=== PATIENT | female | born 1985 | race Caucasian/White ===

== ENCOUNTER 2017-04-03 10:03 | Emergency (ER) | payer MEDICAID ==
[2017-04-03 10:39] LABS: RAPID STREP SCREEN REAGENT QC YELLOW (YELLOW)
[2017-04-03 11:25] VITALS: BP 114/69
[2017-04-03] MEDS ORDERED: ACETAMINOPHEN 160 MG/5 ML SUSP UDC ONE (11:36)
[2017-04-03] MEDS ORDERED: DEXAMETHASONE 10 MG/ML VIAL ONE (11:36)
[2017-04-03] MEDS ORDERED: DEXAMETHASONE 10 MG/ML VIAL PO STA (11:37)
[2017-04-03] MEDS ORDERED: ACETAMINOPHEN 500 MG TABLET PO STA (11:37)
--- NOTE | 2017-04-03 11:44 | ED Physician Documentation ---
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 Strep is going around at the school. 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 : None HEENT: None Psych: Anxiety Musculoskeletal: None Derm: None - Past Surgical History Past Surgical History: No - Present Medications Home Medications: Ambulatory Orders Medication Instructions Recorded Confirmed Amoxicillin 500 mg PO TID #30 capsule 04/03/17 HYDROcod/ACETAM 5/325 [[place] 5/325] 1 - 2 ea PO Q6H PRN #15 tablet 04/03/17 - Allergies Allergies/Adverse Reactions: Allergies Allergy/AdvReac Type Severity Reaction Status Date / Time codeine Allergy Nausea Verified 05/11/16 22:29 ibuprofen AdvReac Nausea Verified 04/03/17 10:11 - Social History Does the pt smoke?: No Smoking Status: Never smoker Does the pt drink ETOH?: Yes Does the pt have substance abuse?: No - Immunizations Immunizations are current?: Yes - POLST Patient has POLST: No PD ED PE NORMAL - Vitals Vital signs reviewed: Yes - General General: Alert and oriented X 3, No acute distress, Well developed/nourished - HEENT HEENT: Atraumatic, PERRL, EOMI, Other (marked erythema and swelling of the uvula ) - Neck Neck: Supple, no meningeal sign, No bony TTP - Cardiac Cardiac: No murmur, Other (tachy to 110) - Respiratory Respiratory: No respiratory distress, Clear bilaterally - Derm Derm: Normal color, Warm and dry, No rash - Extremities Extremities: No deformity, No edema - Neuro Neuro: No motor deficit, No sensory deficit - Psych Psych: Normal mood, Normal affect Results - Vitals Vitals: Vital Signs - 24 hr 04/03/17 04/03/17 10:08 11:24 Temperature 38.3 C H 38.9 C H Heart Rate 128 H 116 H Respiratory 18 18 Rate Blood Pressure 127/75 114/69 O2 Saturation 99 96 Oxygen O2 Source Room air - Labs Labs: Laboratory Tests 04/03/17 10:10 Group A Strep Rapid POSITIVE H PD MEDICAL DECISION MAKING - ED course Complexity details: considered differential, d/w patient ED course: Strep + given decadron and tylenol and we will put her on some amoxicillin Departure - Departure Disposition: 01 Home, Self Care Clinical Impression: Strep throat Condition: Stable Instructions: ED Strep Pharyngitis Conf Follow-Up: [facility] [Provider Group] Prescriptions: Amoxicillin 500 mg PO TID #30 capsule HYDROcod/ACETAM 5/325 [[place] 5/325] 1 - 2 ea PO Q6H PRN #15 tablet PRN Reason: Pain
== END 2017-04-03 11:54 | disposition home or self-care (01) ==
LOC: ED 10:03
DX: J02.0 Streptococcal pharyngitis (principal); Z87.11 Personal history of peptic ulcer disease
CPT/HCPCS: 87430; 99283; A9270

== ENCOUNTER 2018-11-30 11:08 | Emergency (ER) | payer MEDICAID ==
[2018-11-30 11:46] VITALS: BP 119/67
--- NOTE | 2018-11-30 12:47 | ED Physician Documentation ---
PD HPI UPPER EXT INJURY - Stated complaint Stated Complaint: LF THUMB VS SAW - Chief complaint Chief Complaint: Laceration - History obtained from History obtained from: Patient - History of Present Illness Location: Left (This is a right-handed woman who is up-to-date on tetanus who cut the dorsum of her left thumb at home just prior to arrival with a saw while cutting trim.) Review of Systems Ten Systems: 10 systems reviewed and negative Constitutional: reports: Reviewed and negative Cardiac: reports: Reviewed and negative Respiratory: reports: Reviewed and negative PD PAST MEDICAL HISTORY - Past Medical History Cardiovascular: None Respiratory: None Endocrine/Autoimmune: None GI: Ulcers 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 : None HEENT: None Psych: Anxiety Musculoskeletal: None Derm: None - Past Surgical History Past Surgical History: No - Present Medications Home Medications: Ambulatory Orders Medication Instructions Recorded Confirmed Amoxicillin 500 mg PO TID #30 capsule 04/03/17 HYDROcod/ACETAM 5/325 [[place] 5/325] 1 - 2 ea PO Q6H PRN #15 tablet 04/03/17 Cephalexin [Keflex] 500 mg PO Q6H #28 capsule 11/30/18 Hydrocodone/Acetaminophen 1 - 2 each PO Q6H PRN #14 tablet 11/30/18 [Hydrocodon-Acetaminophen 5-325] - Allergies Allergies/Adverse Reactions: Allergies Allergy/AdvReac Type Severity Reaction Status Date / Time codeine Allergy Nausea Verified 11/30/18 11:45 ibuprofen AdvReac Nausea Verified 11/30/18 11:45 - Social History Does the pt smoke?: No Smoking Status: Never smoker Does the pt drink ETOH?: Yes Does the pt have substance abuse?: No - Family History Family history: reports: Non contributory - Immunizations Immunizations are current?: Yes - POLST Patient has POLST: No PD ED PE NORMAL - Vitals Vital signs reviewed: Yes - General General: Alert and oriented X 3, No acute distress - HEENT HEENT: PERRL, EOMI - Neck Neck: Supple, no meningeal sign, No bony TTP - Cardiac Cardiac: RRR, No murmur - Respiratory Respiratory: No respiratory distress, Clear bilaterally - Abdomen Abdomen: Normal bowel sounds, Soft, Non tender - Back Back: No CVA TTP, No spinal TTP - Derm Derm: Normal color, Warm and dry - Extremities Extremities: Other (There is a 2 cm laceration over the dorsal surface of the left thumb just distal to the MCP over the proximal phalanx. It is mostly on the radial side. She has intact but diminished sensation on both sides of the tip with normal cap refill. Tendon function will be assessed after anesthetic.) - Neuro Neuro: Alert and oriented X 3, Normal speech - Psych Psych: Normal mood, Normal affect Results - Vitals Vitals: Vital Signs - 24 hr 11/30/18 11:35 Temperature 36.4 C L Heart Rate 78 Respiratory 20 Rate Blood Pressure 119/67 O2 Saturation 98 Oxygen O2 Source Room air - Rads (name of study) L hand Radiology: EMP read contemporaneously (open chip frx thumb prox phalanx) Procedures - Laceration (location) L thumb Length in cm: 2 Wound type: Other (Jagged, explored, no tendon involvement that I can see, small bit of bone hanging loose and debrided) Neurovascular status: Sensory intact (some tingling, but gross sensation nl at tip) Anesthesia: Lidocaine 1%, With bicarb Wound Preparation: Hibiclens, Irrigated copiously NS Skin layer closure: Nylon, Interrupted, Size #-0 - enter number (4-0) Complexity: Intermediate - Splint (location) L hand Splint applied by: Tech Type of splint: Fiberglass, Short arm, Thumb spica Other: Patient tolerated well, No complications, Neurovascular intact PD MEDICAL DECISION MAKING - ED course ED course: 33-year-old woman with a nondominant hand injury with a open fracture of the left proximal phalanx of the thumb and jagged laceration there but seems to resist flexion and ulnar or radial deviation very well. Case discussed by phone with the on-call orthopedist, Dr. Stewart who will see her in follow-up. The skin was closed and she was placed in a splint. Departure - Departure Disposition: 01 Home, Self Care Clinical Impression: Open fracture of left thumb Qualifiers: Encounter type: initial encounter Phalanx: proximal Fracture alignment: nondisplaced Qualified Code(s): S62.515B - Nondisplaced fracture of proximal phalanx of left thumb, initial encounter for open fracture Condition: Good Record reviewed to determine appropriate education?: Yes Instructions: ED Fx Hand Open Follow-Up: [facility] [Provider Group] (Call today, Dr. Stewart is available aware of your case and would like to see you by Wednesday.) Prescriptions: Cephalexin [Keflex] 500 mg PO Q6H #28 capsule Hydrocodone/Acetaminophen [Hydrocodon-Acetaminophen 5-325] 1 - 2 each PO Q6H PRN #14 tablet PRN Reason: pain Comments: Keep the splint on and dry, keep it elevated as much as possible. Do not drink or drive while taking narcotic pain medication. Note that many narcotic pain relievers also contain Tylenol/acetaminophen. Please ensure that your total dose of acetaminophen from all sources does not exceed 3 g (3000 mg) per day. You may get constipated while on this medication. Take a stool softener such as Colace twice a day while you are on it. Also add an [id number] laxative such as senna or MiraLAX on any day that you do not have a bowel movement. If you received a narcotic pain medication or sedative while in the emergency department, do not drive for the next 24 hours.
[2018-11-30] MEDS: BUFFERED LIDOCAINE 10 ML SYRINGE SUBQ STA (12:54)
--- NOTE | 2018-11-30 12:55 | XRAY Report ---
Reason: thumb vs saw Procedure Date: 11/30/2018 Accession Number: [id number] / [id number] Procedure: XR - Hand 3 View LT CPT Code: FULL RESULT: EXAM: LEFT HAND RADIOGRAPHY EXAM DATE: 11/30/2018 12:35 PM. CLINICAL HISTORY: Thumb versus saw. COMPARISON: HAND 3 VIEW RT 03/11/2015 10:41 AM. TECHNIQUE: 3 views. FINDINGS: Bones: Osseous fragments along the medial aspect of the left first proximal phalanx with apparent intra-articular extension of the "cut" are consistent with saw injury involving the first metacarpophalangeal joint and first proximal phalanx. Joints: Normal. No subluxations. Soft Tissues: Soft tissue swelling in the region of injury. IMPRESSION: Intra-articular extension of the wound. RADIA
[2018-11-30] MEDS: HYDROcod/ACETAM 5/325 MG TABLET PO STA (13:33)
[2018-11-30] MEDS: cephALEXin 250 MG CAPSULE PO STA (13:33)
== END 2018-11-30 13:48 | disposition home or self-care (01) ==
LOC: ED 11:08
DX: S62.515B Nondisplaced fracture of proximal phalanx of left thumb, initial encounter for open fracture (principal); W27.0XXA Contact with workbench tool, initial encounter; Y92.009 Unspecified place in unspecified non-institutional (private) residence as the place of occurrence of the external cause
CPT/HCPCS: 12041; 99283

== ENCOUNTER 2018-12-20 12:22 | Emergency (ER) | payer MEDICAID ==
--- NOTE | 2018-12-20 13:32 | ED Physician Documentation ---
PD HPI UPPER EXT INJURY - Stated complaint Stated Complaint: HAND INJURY/LACERATION - Chief complaint Chief Complaint: Trauma Ext - History obtained from History obtained from: Patient - History of Present Illness Location: Left, Finger (middle ring and little fingers.) Type of injury: Twist, Laceration (she was holding wire for fencing to fix it and her horse ran into the wire and pulled it suddently, causing tear of skin on patient's middle/ring and little fingers, mostly the little one. Fingers were also twisted with that, and it hurts to move the fingers at PIP joints.) Where injury occurred: Home Timing - onset: Today Worsened by: Moving, Palpating Associated symptoms: No: Weakness, Numbness Contributing factors: Prior ortho surgery (she had axed her left hand at base of thumb and had repair of that tendon and skin, with suture removal and replace cast last week. 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 HEENT: None Psych: Anxiety Musculoskeletal: None Derm: None - Past Surgical History Past Surgical History: No - Present Medications Home Medications: Ambulatory Orders Medication Instructions Recorded Confirmed Hydrocodone/Acetaminophen [[place] 1 each PO Q6H PRN #20 tablet 12/20/18 5-325 Tablet] Mupirocin 1 applic TP TID #15 g 12/20/18 Sertraline [Zoloft] 1 tab PO BID 12/20/18 12/20/18 - Allergies Allergies/Adverse Reactions: Allergies Allergy/AdvReac Type Severity Reaction Status Date / Time codeine Allergy Nausea Verified 12/20/18 12:30 ibuprofen AdvReac Nausea Verified 12/20/18 12:30 - Social History Does the pt smoke?: No Smoking Status: Never smoker Does the pt drink ETOH?: Yes Does the pt have substance abuse?: No - Immunizations Immunizations are current?: Yes - POLST Patient has POLST: No PD ED PE NORMAL - Vitals Vital signs reviewed: Yes - General General: Alert and oriented X 3, Well developed/nourished, Other (seems uncomfortable with fingers movement and palpation. ) - Derm Derm: Normal color, Warm and dry - Extremities Extremities: Other (thumb spica cast in place. Her left middle/ring/little fingers with lacerations of partial thickness skin layers. Some loose devitalized skin partly held on. These are trimmed off. No FBs seen. She can flex and extend fingers. Lacs are not full thickness, so no sutures needed. Tenderness and some swelling of ring and little fingers. ) - Neuro Neuro: Alert and oriented X 3, No motor deficit, No sensory deficit Results - Vitals Vitals: Vital Signs - 24 hr 12/20/18 12/20/18 12:28 15:58 Temperature 36.3 C L Heart Rate 95 86 Respiratory 17 16 Rate Blood Pressure 145/86 H 112/79 O2 Saturation 99 99 Oxygen O2 Source Room air - Rads (name of study) left hand Radiology: Prelim report reviewed, EMP read contemporaneously (prior fracture base of first MC similar to prior. Fingers without acute fracture. ), See rad report PD MEDICAL DECISION MAKING - ED course Complexity details: reviewed results, considered differential (superficial lacs with loose thin skin. I trimmed the loose pieces off. ), d/w patient Departure - Departure Disposition: 01 Home, Self Care Clinical Impression: Laceration of fingers without complication Qualifiers: Encounter type: initial encounter Qualified Code(s): S61.219A - Laceration without foreign body of unspecified finger without damage to nail, initial encounter Condition: Stable Record reviewed to determine appropriate education?: Yes Instructions: ED Laceration Hand Follow-Up: [facility] [Provider Group] Prescriptions: Hydrocodone/Acetaminophen [[place] 5-325 Tablet] 1 each PO Q6H PRN #20 tablet PRN Reason: Pain Mupirocin 1 applic TP TID #15 g Comments: Cleanse the lacerations of the hand couple of times a day and apply mupirocin antibiotic ointment. Bandage to keep them protected. There are no fractures seen on x-ray. Follow-up with orthopedics next week as planned for the wrist. Return if signs of infection of the fingers. Tylenol if needed for pains. Add hydrocodone if needed. Discharge Date/Time: 12/20/18 15:59
[2018-12-20] MEDS ORDERED: HYDROcod/ACETAM 5/325 MG TABLET PO STA (13:52)
[2018-12-20] MEDS ORDERED: LIDOCAINE JELLY 2% 5 ML TUBE TOP STA (13:52)
[2018-12-20 15:59] VITALS: BP 112/79
--- NOTE | 2018-12-20 15:59 | XRAY Report ---
Reason: fingers twisted with wire; prior thumb fracture. Procedure Date: 12/20/2018 Accession Number: [id number] / [id number] Procedure: XR - Hand 3 View LT CPT Code: FULL RESULT: EXAM: LEFT HAND RADIOGRAPHY EXAM DATE: 12/20/2018 03:23 PM. CLINICAL HISTORY: Fingers twisted with wire; prior thumb fracture. COMPARISON: Left hand 11/30/2018. TECHNIQUE: 3 views. FINDINGS: Small fracture fragments of the radial aspect of the base of the first proximal phalanx are again noted, and are better imaged on the prior examination on 11/30/2018, prior to cast placement. Alignment is near-anatomic. Cast otherwise obscures detail. Prior imaging demonstrated a soft tissue defect of the thumb. IMPRESSION: First proximal phalanx fracture with near anatomic alignment. Cast otherwise obscures detail. RADIA
== END 2018-12-20 15:59 | disposition home or self-care (01) ==
LOC: ED 12:22
DX: S61.213A Laceration without foreign body of left middle finger without damage to nail, initial encounter (principal); S61.217A Laceration without foreign body of left little finger without damage to nail, initial encounter; S61.215A Laceration without foreign body of left ring finger without damage to nail, initial encounter; W23.0XXA Caught, crushed, jammed, or pinched between moving objects, initial encounter; W45.8XXA Other foreign body or object entering through skin, initial encounter
CPT/HCPCS: 73130; 99283; A9270; J3490

== ENCOUNTER 2020-04-07 22:50 | Emergency (ER) | payer MEDICAID ==
[2020-04-07 22:58] VITALS: BP 165/103
--- NOTE | 2020-04-07 23:18 | ED Physician Documentation ---
PD HPI UPPER EXT INJURY - Stated complaint Stated Complaint: LAC - Chief complaint Chief Complaint: Laceration - History obtained from History obtained from: Patient - History of Present Illness Location: Left, Finger Type of injury: Laceration Where injury occurred: Home Timing - onset: Enter time (22:00), Today Timing - details: Abrupt onset Associated symptoms: No: Weakness, Numbness, Tingling, Swelling, Discolored Similar symptoms before: Has not had sx before - Additonal information Additional information: c/o laceration to left hand/base of left second digit, sustained when using a jigsaw at home at approximately 10 PM tonight. 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 HEENT: None Psych: Anxiety Musculoskeletal: None Derm: None - Past Surgical History Past Surgical History: No - Present Medications Home Medications: Ambulatory Orders Medication Instructions Recorded Confirmed buPROPion [Wellbutrin Xl] 150 mg PO DAILY 04/07/20 04/07/20 - Allergies Allergies/Adverse Reactions: Allergies Allergy/AdvReac Type Severity Reaction Status Date / Time codeine AdvReac Nausea Verified 04/07/20 22:58 ibuprofen AdvReac Nausea Verified 04/07/20 22:58 - Social History Does the pt smoke?: No Smoking Status: Never smoker Does the pt drink ETOH?: Yes Does the pt have substance abuse?: No - Immunizations Immunizations are current?: Yes - POLST Patient has POLST: No PD ED PE NORMAL - Vitals Vital signs reviewed: Yes - General General: Alert and oriented X 3, No acute distress, Well developed/nourished - Extremities Extremities: No deformity, No tenderness to palpate, Normal ROM s pain, No edema - Neuro Neuro: No motor deficit, No sensory deficit, Other (FROM left 2nd digit, flexion and extension (flexion tested with isolation of PIP, DIP, and MCP joints). LTS intact at tip of left second digit with brisk capillary refill) PD ED PE EXPANDED - Extremities MINDA UE/Hands Visual: 1 - abrasion (linear abrasion; no laceration. no FB visualized and ROM is intact. TTP at site of injury (soft tissue tenderness, but no bony tenderness)) Results - Vitals Vitals: Vital Signs - 24 hr 04/07/20 22:50 Temperature 36.3 C L Heart Rate 99 Respiratory 18 Rate Blood Pressure 165/103 H O2 Saturation 98 Oxygen O2 Source Room air PD MEDICAL DECISION MAKING - ED course Complexity details: considered differential, d/w patient Departure - Departure Disposition: 01 Home, Self Care Clinical Impression: Abrasion Condition: Good Instructions: ED Abrasion Discharge Date/Time: 04/07/20 23:31
[2020-04-07] MEDS ORDERED: BACITRACIN ZINC OINT 1 PACKET TOP STA (23:26)
== END 2020-04-07 23:31 | disposition home or self-care (01) ==
LOC: ED 22:50
DX: S60.411A Abrasion of left index finger, initial encounter (principal); W31.2XXA Contact with powered woodworking and forming machines, initial encounter; Y93.89 Activity, other specified; Y92.009 Unspecified place in unspecified non-institutional (private) residence as the place of occurrence of the external cause
CPT/HCPCS: 99281; 99282